=== PATIENT | female | born 1990 | race Caucasian/White ===

== ENCOUNTER 2017-12-03 09:05 | Emergency (ER) | payer OTHER ==
[~2017-12-03 09:05] MED LIST: ANTIDEPRESSANTS; DICL-195 PO; FLUO40CA76 PO; HYDR-4309 PO; KET10 PO; LOR5/325 PO; NAPR500T75 PO; SULF-198 PO; TRAM-627 PO
[2017-12-03] MEDS ORDERED: bcps (09:22)
[2017-12-03 10:30] VITALS: BP 126/82
--- NOTE | 2017-12-03 10:30 | ER Report ---
History and Physical Time Seen By MD: 10:02 Hx. of Stated Complaint: pt presents with 4 days hx of r calf pain. Denies injury, has been walking more than usual. She is on BCLP's, non smoker. On her feet all day at work HPI/ROS CHIEF COMPLAINT: []Right foot and calf pain since Thursday which is 4 days HISTORY OF PRESENT ILLNESS: 26-year-old female notes a four-day history of calf pain which started on Thursday. She woke with the pain. Patient notes that the day before she was doing a lot of walking downtown tonight examined her shoes which are flattened have no support. Patient is a nonsmoker and she is on oral contraceptives and the family does have factor V Leyden problems however the patient has been tested and does not. Patient notes it hurts to walk and the pain is lower calf posteriorly through the heel and on the bottom of the foot. She says at times it feels like it goes to the toe. She can feel her toes when she does note she walked a lot more the unusual yesterday. 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 She notes leg is not swollen. Patient is on fluoxetine for depression and she is on oral contraceptives. No known medical allergies. Surgeries include cholecystectomy, hymenectomy is a 1-year-old, and a trigger thumb revision on the right side. REVIEW OF SYSTEMS: Constitutional: No fever, no chills. Eyes: No discharge. ENT: No sore throat. Cardiovascular: No chest pain, no palpitations. Respiratory: No cough, no shortness of breath. Gastrointestinal: No abdominal pain, no vomiting. Genitourinary: No hematuria. Musculoskeletal: No back pain. Skin: No rashes. Neurological: No headache. Allergies: Coded Allergies: No Known Drug Allergies (Unverified , 12/03/17) Home Meds Reported Medications [bcps] No Conflict Check 12/03/17 Fluoxetine Hcl (PROZAC) 40 Mg Capsule, 40 MG PO QDAY, CAPSULE 04/28/16 Discontinued Reported Medications Diclofenac Sodium (DICLOFENAC SODIUM) 75 Mg Tablet.dr, 75 MG PO BID, TAB 12/26/16 Discontinued Scripts Ketorolac Tromethamine (KETOROLAC TROMETHAMINE) 10 Mg Tab, 10 MG PO Q6H Y for PAIN, #12 TAB 0 Refills Prov:ИРИНА OTTO MD 12/26/16 Sulfamethoxazole/Trimet 800-160 Mg Tab (BACTRIM DS TABLET) 1 Each Tablet, 1 TAB PO Q12H, #14 TAB 0 Refills Prov:ИРИНА OTTO MD 12/26/16 Hydrocodone Bit/Acetaminophen (HYDROCODON-ACETAMINOPHEN 5-325) 1 Each Tablet, 1 EACH PO Q4-6H Y for PAIN, #30 TAB Prov:OMEGA PATEL MD 05/06/16 Ketorolac Tromethamine (KETOROLAC TROMETHAMINE) 10 Mg Tab, 10 MG PO Q6H, #20 TAB Prov:OMEGA APTEL MD 05/06/16 Sulfamethoxazole/Trimet 800-160 Mg Tab (BACTRIM DS TABLET) 1 Each Tablet, 1 TAB PO Q12H, #18 TAB Prov:PARISA BARAJAS 04/28/16 Hydrocodone Bit/Acetaminophen (NORCO 5-325 TABLET) 1 Each Tablet, 1 EACH PO Q4- 6H Y for PAIN, #12 TAB Prov:PARISA BARAJAS 04/28/16 Reviewed Nurses Notes: Yes Hx Smoking: No Smoking Status: Never Smoker Hx Substance Use Disorder: No Hx Alcohol Use: Yes (occ) Constitutional Vital Sign - Last 24 Hours 12/03/17 09:15 Temp 98.2 Pulse 95 Resp 20 B/P (MAP) 139/92 Pulse Ox 98 O2 Delivery Room Air Physical Exam General Appearance: [The patient is alert, has no immediate need for airway protection and no signs of toxicity.] [ ] Eyes: Pupils equal and round no pallor or injection. ENT, Mouth: Mucous membranes are moist. Respiratory: There are no retractions, lungs are clear to auscultation. Cardiovascular: Regular rate and rhythm. [ ] Gastrointestinal: Abdomen is soft and non tender, no masses, bowel sounds normal. Neurological: [ ] Skin: Warm and dry, no rashes. Musculoskeletal: Neck is supple non tender. Extremities: Upper and lower extremities evaluation is normal with the exception right lower leg: Patient is tender over the Achilles from the mid calf down to the Achilles bursae on the posterior calcaneus. This is where the majority of the tenderness is. There is no swelling or edema. Heel compression test is negative. Patient has tenderness over the spring ligament on that foot. The MP joints are normal and the base of the 5th metatarsal is without tenderness. She has good her dorsalis pedis pulses bilaterally. Capillary refill is less than 3 seconds. Sensation to light touch is equal to the toes on the left foot. Differential diagnosis: DVT: Achilles tendinitis: Spring ligament sprain: Plantar fasciitis: Metatarsalgia: Sprained foot Medical Decision Making ED Course/Re-evaluation ED Course 12/03/2017 10:26:09 am Evaluation itching physical consistent with Achilles tendinitis and spring ligament sprain. Patient will be given handouts and is discussed. Decision to Disposition Date: Dec 03, 2017 Decision to Disposition Time: 10:26 Depart Departure Latest Vital Signs Vital Signs Date Time Temp Pulse Resp B/P (MAP) Pulse Ox O2 Delivery O2 Flow Rate FiO2 12/03/17 09:15 98.2 95 20 139/92 98 Room Air Impression: Primary Impression: Achilles tendinitis of right lower extremity Condition: Condition Unchanged Disposition: HOME OR SELF-CARE Referrals: SYDNI MONTOYA (PCP) Patient Instructions: Achilles Tendinitis (ED), Achilles Tendinitis Exercises ( GEN) Additional Instructions: Ibuprofen 800 mg 3 times a day. You will need to good shoes as was discussed and I also suggest 1 or 2. Good socks also suggested Ice to the area 15 minutes on 3 times a day. Warm up and stretch out before going anywhere. Pain tension to instructions given. You are cleared to go to work. YADI MCKEON MD Dec 03, 2017 10:30
== END 2017-12-03 10:36 | disposition home or self-care (01) ==
LOC: ER 09:23
DX: M76.61 Achilles tendinitis, right leg (principal)
CPT/HCPCS: 99281

== ENCOUNTER → 2017-12-17 | Outpatient (CLI) | payer OTHER ==
[~2017-12-17] MED LIST changes: +bcps
--- NOTE | 2017-12-17 15:16 | RADIOLOGY IMAGING REPORT ---
FACILITY: [facility] - [place] PATIENT NAME: Lety Davis : 1990 MR: [id number] V: [id number] EXAM DATE: ORDERING PHYSICIAN: SYDNI MONTOYA TECHNOLOGIST: [place] [facility] [place] Lety Davis : 1990 Visit/Account:[id number] Date of Sevice: 12/17/2017 Exam type: ANKLE 3 VIEW MIN RIGHT History: Right ankle pain x2 weeks Comparison: None. Findings: Three views of the right ankle reveal no evidence of acute fracture-dislocation or significant arthri tic change. No lytic or blastic bone lesion seen. IMPRESSION: 1. No acute osteoarticular abnormality of the right ankle is seen Report Dictated By: Gema Hutchins MD at 12/17/2017 3:11 PM Report E-Signed By: Gema Hutchins MD at 12/17/2017 3:12 PM WSN:[email or web address]
--- NOTE | 2017-12-17 15:22 | RADIOLOGY IMAGING REPORT ---
FACILITY: [facility] PATIENT NAME: Lety Davis : 1990 MR: [id number] V: [id number] EXAM DATE: ORDERING PHYSICIAN: SYDNI MONTOYA TECHNOLOGIST: Location: [facility] - [place] Patient: Lety Davis : 1990 Visit/Account:[id number] Date of Sevice: 12/17/2017 Exam type: FOOT 3 VIEW RIGHT History: Right ankle pain x2 weeks Comparison: None. Findings: There is no evidence of acute fracture dislocation or significant arthritic change involving the righ t foot. No opaque soft tissue foreign bodies are seen. IMPRESSION: 1. No acute osteoarticular abnormality right foot is seen Report Dictated By: Gema Hutchins MD at 12/17/2017 3:15 PM Report E-Signed By: Gema Hutchins MD at 12/17/2017 3:17 PM WSN:[email or web address]
== END ==
LOC: RAD 14:38
PROVIDERS: ATTEND Nurse Practitioner Psychiatric/Mental Health
DX: M25.571 Pain in right ankle and joints of right foot (principal)

== ENCOUNTER 2017-12-28 14:53 | Emergency (ER) | payer OTHER ==
--- NOTE | 2017-12-28 15:30 | ER Report ---
History and Physical Time Seen By MD: 14:55 HPI/ROS CHIEF COMPLAINT: Arrest HISTORY OF PRESENT ILLNESS: Patient is a 27-year-old female (Lety Davis) arrived in cardiac arrest, asystole, unresponsive. She was reportedly found at home by family after a brief syncopal episode. EMS reports that the patient was dykes and ashen at time of initial contact though she was speaking to EMS providers. I received initial phone call from EMS that the patient was speaking , had oxygen saturations 50's% on 20 L nonrebreather and ashen skin complaining of abdominal pain, chest tightness, severe shortness of breath. She was trialed on CPAP shortly prior to arrival and arrested in the ambulance bay at which time EMS started compressions. Initial arrest was approximately 1449 and the patient was transferred to the hospital room stretcher at approximately 1451. Patient was promptly intubated and patient was placed on the JACEK device for continued compressions. ACLS protocols were promptly started as patient was in asystole and further vascular access was achieved by IO of the left Tibia and right upper extremity IV. ( please see nursing records for further details) TPA was administered due to concern for large pulmonary embolism. Patient's family has a history notable for a clotting disorder. Patient was noted to be on oral contraceptives. REVIEW OF SYSTEMS: Unable to obtain due to unconscious status Allergies: Coded Allergies: No Known Drug Allergies (Unverified , 12/03/17) Home Meds Reported Medications [bcps] No Conflict Check 12/03/17 Fluoxetine Hcl (PROZAC) 40 Mg Capsule, 40 MG PO QDAY, CAPSULE 04/28/16 Hx Smoking: No Smoking Status: Never Smoker Hx Substance Use Disorder: No Hx Alcohol Use: Yes (occ) Physical Exam General Appearance: Unconscious, unresponsive Eyes: 3 mm non reactive ENT, Mouth: ETT in place 7.5 24" at the lip, no tracheal deviation, no JVD Respiratory: BVM ventilations, equal chest rise with b/l lung sounds present Cardiovascular: JACEK compressions in process, no pulse at pulse check Gastrointestinal: Abdomen is soft, no masses noted Neurological: Non responsive, no spontaneous movement, pupils fixed Skin: Ashen/pale Musculoskeletal: Extremities cool and pale DIFFERENTIAL DIAGNOSIS: After history and physical exam differential diagnosis was considered for PE, cardiac arrest, cardiac tamponade, tension pneumothorax, drug overdose, hypoglycemia, hemorrhage Medical Decision Making EKG/Imaging EKG Interpretation Asystole Monitor Interpretation: Other Imaging Bedside ultrasound: Evaluation of the cardiopulmonary system was completed during code - B/l lung sliding was present, good lung sliding with ventilations (rule out tension pneumothorax) - No fluid was identified surrounding the cardiac silhouette (r/o cardiac tamponade) - Cardiac silhouette had no organized movement (accompanied by asystole on monitor)- No cardiac movement present prior to ending code ED Course/Re-evaluation Clinical Indication for ER IV: IV Access ED Course Patient is a 27-year-old female (Lety Davis) arrived in cardiac arrest. She was reportedly found at home by family after a brief syncopal episode. EMS reports that the patient was dykes and ashen at time of initial contact speaking to EMS providers. I received initial phone call from EMS that the patient was speaking, had oxygen saturations 50's% on 20 L nonrebreather and ashen skin complaining of abdominal pain, chest tightness, severe shortness of breath. She was trialed on CPAP shortly prior to arrival and arrested in the ambulance bay at which time EMS started compressions. Initial arrest was approximately 1449 and the patient was transferred to the [facility] at approximately 1451. Patient was intubated using a 7.5 ETT 24 " at lips Cuffed via 4 blade glidescope (tube was visualized through the cords and b/l breath sounds were present) and patient was placed on the JACEK device for continued compressions. ACLS protocols were promptly started (asystole on monitor) and further vascular access was achieved by IO of the left Tibia and right upper extremity IV. ( please see nursing records for further details) TPA was administered due to concern for pulmonary embolism. A total of 9 doses of epi were given, 1 amp D50 , 1 dose of Narcan, 1 full dose of TPA bolus/infusion (see records). Patient's family has a history notable for clots. Patient was noted to be on oral contraceptives. Patient was initially in asystole and briefly in PEA without cardiac pumping or motion as confirmed by bedside ultrasound. I confirmed that there was no tamponade or fluid collection surrounding the cardiac silhouette by ultrasound and lung sliding was present bilaterally making tension pneumothorax an unlikely etiology. No cardiac motion was present on Ultrasound prior to termination of code with asystole concurrent on telemetry after approximately 30 minutes of attempted resuscitation. Most likely etiology for the clinical presentation and arrest is pulmonary embolism with both the patient 's presentation coupled with the family history of clotting disorder and patient being on OCP treatment. TPA was administered without improvement in physiologic status. Narcan and Dextrose were also administered in order to address possible, though unlikely causes for arrest/AMS. I updated the family regarding the patient's status prior to termination of the code. Time of was called at 1524 as further resuscitation was deemed futile. Decision to Disposition Date: December 28, 2017 Decision to Disposition Time: 15:58 Depart Departure Impression: Primary Impression: Cardiorespiratory arrest Condition: Disposition: Referrals: SYDNI MONTOYA (PCP) SUKH OCRTEZ DO December 28, 2017 15:30
[2017-12-28] MEDS ORDERED: ALTEPLASE RECOMB 100 MG/100 ML VIAL IV ONE (15:45)
[2017-12-28] MEDS ORDERED: EPINEPHrine INJ 1 MG/10 ML SYR IV ONE (19:10)
== END 2017-12-28 15:30 | disposition expired ==
LOC: ER 14:54
DX: I46.9 Cardiac arrest, cause unspecified (principal)
CPT/HCPCS: 31500; 36680; 92950; 99285; J0171; J2310; J2997

== ENCOUNTER → 2017-12-28 | Outpatient (CLI) | payer OTHER | LOC: AMB 14:21 | PROVIDERS: ATTEND Nurse Practitioner | DX: R06.03 Acute respiratory distress (principal) | CPT/HCPCS: A0425; A0427 ==